=== PATIENT | female | born 1950 | race Caucasian/White ===

== ENCOUNTER 2018-08-24 07:02 | Inpatient (IN) | payer MEDICARE ==
--- NOTE | 2018-08-21 11:46 | Diagnostic Imaging Report ---
EXAMINATION: CHEST 2 VIEWS INDICATION: Pre-op. COMPARISON: None FINDINGS: TUBES and LINES: None. LUNGS: Lungs are well inflated. There is no evidence of pneumonia or pulmonary edema. Mild biapical pleural-parenchymal opacity, suggestive of prior granulomatous disease PLEURA: No pleural effusion or pneumothorax. HEART AND MEDIASTINUM: The cardiomediastinal silhouette is unremarkable. BONES AND SOFT TISSUES: No acute osseous abnormality. UPPER ABDOMEN: No free air under the diaphragm. There are cholecystectomy clips. IMPRESSION: No acute radiographic abnormality. Signed by: Dr. Teri Sommers MD on 08/21/2018 11:43 AM
[~2018-08-24] VITALS: Ht 162.6 cm; Wt 62.6 kg
[~2018-08-24 07:02] MED LIST: ALLEGRA-D 24 H1 EACH PO; BACITRACIN 50,000 UNIT VIAL ONE; COLESTIPOL HCL1 GM PO; ESTRADIOL0.5 MG PO; EYE DROP TEARS15 ML; LEVOTHYROXINE75 MCG PO; LOVASTATIN20 MG PO; PROPRANOLOL HCL10 MG PO; ROPIVACAINE 246.25 MG, EPINEPHRINE HCL 1:1000 1ML 0.5 MG, CLONIDINE HCL 0.08 MG, KETORO... INJ ONE; SODIUM CHLORIDE 0.9% 500ML 500 ML ONE; TRANEXAMIC ACID 1,000 MG/10 ML ML ONE; VANCOMYCIN HCL 1,000 MG ONE
--- OUTSIDE RECORDS SUMMARY | 2018-08-24 07:14 | XMS REPORT ---
Author Author [facility] Address Unknown Phone Unavailable Care Team Providers Care Photograph Retoucher Name Role Phone KAYLA DEAN Unavailable Unavailable Problems This patient has no known problems. Allergies, Adverse Reactions, Alerts This patient has no known allergies or adverse reactions. Medications This patient has no known medications. Results Test Description Test Time Test Comments Text Results Atomic Results Result Comments CHEST 2 VIEWS 2018-08-21 11:40:00 [place] [address] Patient Name: SENG ZULETA MR #: [id number] : 1950 Age/Sex: 67/F Req #: [id number] [facility] Physician: Ordered by: KAYLA DEAN MD Report #: [id number] Location: OR Room/Bed: Procedure: [id number] DX/CHEST 2 VIEWS Exam Date: 08/21/18 Exam Time: 1123 REPORT STATUS: Signed EXAMINATION: CHEST 2 VIEWS INDICATION: Pre-op. COMPARISON: None FINDINGS: TUBES and LINES: None. LUNGS: Lungs are well inflated. There is no evidence of pneumonia or pulmonary edema. Mild biapical pleural-parenchymal opacity, suggestive of prior granulomatous disease PLEURA: No pleural effusion or pneumothorax. HEART AND MEDIASTINUM: The cardiomediastinal silhouette is unremarkable. BONES AND SOFT TISSUES: No acute osseous abnormality. UPPER ABDOMEN: No free air under the diaphragm. There are cholecystectomy clips. IMPRESSION: No acute radiographic abnormality. Signed by: Dr. Rey Dennis MD on 08/21/2018 11:43 AM Dictated By: REY DENNIS MD [id number] Transcribed By: BAR on 08/21/18 1143 COPY TO: KAYLA DEAN MD
[2018-08-24] MEDS ORDERED: CELECOXIB 200 MG CAP ONE (07:44)
[2018-08-24] MEDS ORDERED: DEXAMETHASONE SOD PHOS 10 MG/1 ML VIAL ONE (07:44)
[2018-08-24] MEDS ORDERED: VANCOMYCIN 1GM/NS 250 ML 250 ML ONE (07:45)
[2018-08-24] MEDS ORDERED: GABAPENTIN 300 MG CAP ONE (07:45)
[2018-08-24] MEDS ORDERED: BUPIVACAINE 7.5MG/ML /DEXTROSE 82.5MG/ML 2 ML AMP INJ ONE (08:09)
[2018-08-24] MEDS: SODIUM CHLORIDE 0.9% 1000ML 1,000 ML IV SCH ×2 (10:37→21:41)
[2018-08-24] MEDS ORDERED: DOCUSATE SODIUM 100 MG CAP PO PRN (10:45)
[2018-08-24] MEDS ORDERED: PROMETHAZINE HCL (IM) 25 MG/ML VIAL IM PRN (10:45)
[2018-08-24] MEDS ORDERED: ONDANSETRON HCL INJ 2MG/ML 2ML 2 MG/ML VIAL IV PRN (10:45)
[2018-08-24] MEDS ORDERED: DIPHENHYDRAMINE HCL INJ 50 MG/ML VIAL IM/IV PRN (10:45)
[2018-08-24] MEDS ORDERED: KETOROLAC TROMETHAMINE 30 MG/ML VIAL IV PRN (10:45)
[2018-08-24] MEDS ORDERED: ACETAMINOPHEN 650 MG SUPP PR PRN (10:45)
[2018-08-24] MEDS ORDERED: HYDROCODONE/APAP 5MG-325MG TAB PO PRN (10:45)
--- NOTE | 2018-08-24 11:20 | NUR ---
ARRIVED VIA STRETCHER TO ROOM, WITH ASSIST PT TRANSFERRED TO BED AA&OX3, RA, R HAND IV INTACT, FLUSHES WELL, LEFT HIP DRESSING CDI, DENIES ANY PAIN AT THIS TIME, DTV, AYESHA HOSE IN PLACE TO RLE, FOOT PUMPS IN PLACE AND CONNECTED TO PUMP, ORIENTED TO ROOM AND CALL LIGHT SYSTEM, CALL LIGHT WITHIN REACH
[2018-08-24 11:43] VITALS: BP 106/60
[2018-08-24 11:48] VITALS: BP 106/60
[2018-08-24] MEDS ORDERED: PROPRANOLOL HCL40 MG PO (11:58)
[2018-08-24] MEDS: ACETAMINOPHEN 1000 MG/100 ML IV SCH ×2 (12:00→18:00)
--- NOTE | 2018-08-24 12:20 | Diagnostic Imaging Report ---
Exam: AP pelvis History: Postoperative evaluation Comparison: None. Findings: No fracture or malalignment. Left total hip arthroplasty. Expected postsurgical change. No complication. No abnormal soft tissue calcification or soft tissue defect. Impression: Left total hip arthroplasty without complication Signed by: Dr. Fabricio Arriaza M.D. on 08/24/2018 12:17 PM
--- NOTE | 2018-08-24 12:31 | Operative Report ---
DATE OF PROCEDURE: 08/24/2018 SURGEON: Tyree Jimenez MD CONSULTING DATABASE ADMINISTRATOR: Bubba Bell PA-C. PREOPERATIVE DIAGNOSIS: Osteoarthritis of left hip. POSTOPERATIVE DIAGNOSIS: Osteoarthritis of left hip. PROCEDURE: Left total hip arthroplasty. INDICATIONS: The patient is a 67-year-old lady, who has advanced osteoarthritis of her left hip. She has failed conservative management and would like to proceed with a left total hip replacement. The risks and benefits of the surgery have been discussed. The recovery has been explained. All of her questions have been answered. She states she understands and wishes to proceed. PROCEDURE IN DETAIL: The patient was brought to the operating room and placed under spinal anesthetic. She was given some IV sedation and positioned in the right lateral decubitus position. Her left hip was prepped and draped in a sterile manner. A preoperative time-out was performed. A posterior approach with a limited incision was made to the left hip. Hemostasis was obtained with electrocautery. A deep Charnley retractor was placed. The posterior capsule was carefully exposed. Additional hemostasis was further obtained with electrocautery. The posterior capsule and a portion of the short external rotators were released. The hip was dislocated. Marked synovitis of the joint and complete erosion of the articular cartilage of the femoral head was noted. An oscillating saw was used to resect the femoral head. Acetabular retractors were placed. The remnants of the labrum were highly fragmented and were excised. The socket was then reamed to 51 mm. This accomplished hemispherical bleeding cancellous bone. A single small subchondral cyst was debrided. A Steven [employer] OsseoTi socket with a 52 mm outer diameter was impacted. Fixation was augmented with a single 20 mm cancellous screw placed into the ilium. A highly cross-linked polyethylene liner with a 36 mm inner diameter was then seated into place. Care was taken to make sure that there was no evidence of soft tissue interposition. The hip had been thoroughly irrigated on several occasions during this portion of the case with a shower tip pulsatile lavage. Additional spray bottle of polymyxin and vancomycin spray was used. A portion of a 100 mL premixed pericapsular MATTHEW injection was placed around the socket. The socket was packed with a moistly soaked lap sponge and attention was directed towards the proximal femur. A box cutting osteotome and taper pin reamer were used to establish entry to the femoral canal. The Taperloc broaches were then impacted. A #9 stem had good canal fill and rotational stability for a trial reduction. A standard 36 mm head restored appropriate length and provided good stability through a full arc of motion. The trial implants were removed. The hip was further irrigated with the pulsatile lavage and the polymyxin/vancomycin spray. The remainder of the injection was placed into the subcutaneous tissue. The implants were seated. A standard 36 mm head was seated onto a clean and dry stem. A final reduction was performed. 500 mg of vancomycin powder was sprinkled into the joint. The posterior capsule was repaired with #2 Ethibond. The tensor fascia and gluteal fascia were closed with #2 Ethibond. The skin was closed with subcuticular Vicryl and darell. A sterile Aquacel bandage was applied. She was returned to the supine position and transported to the recovery room in stable condition. Blood loss was approximately 50 mL. All needle and sponge counts were correct. Tyree Jimenez MD DR/VIVI /[id number]
[2018-08-24 12:32] VITALS: BP 106/60
--- NOTE | 2018-08-24 13:02 | NUR ---
VISITING WITH FAMILY AT BEDSIDE, DENIES PAIN AT THIS TIME, CALL LIGHT WITHIN REACH
--- NOTE | 2018-08-24 15:39 | NUR ---
TALKING ON PHONE, DENIES PAIN AT THIS TIME, CALL LIGHT WITHIN REACH, PER PHYSICAL THERAPY PT SHOULD ONLY USE BEDPAN TODAY DUE TO "BEING UNABLE TO FEEL FEET AT THIS TIME"
[2018-08-24 16:00] VITALS: BP 110/61
[2018-08-24] MEDS ORDERED: LIDOCAINE HCL 2% LOCAL INJ 5 ML SDV VIAL INJ ONE (16:58)
[2018-08-24] MEDS ORDERED: PROPOFOL IV EMULSION 10 MG/ML 20 ML VIAL ONE (16:58)
[2018-08-24] MEDS ORDERED: CELECOXIB 100 MG CAP PO SCH (17:00)
[2018-08-24] MEDS ORDERED: FENTANYL CITRATE/PF 100MCG/2 ML INJ ONE (17:06)
[2018-08-24] MEDS ORDERED: MIDAZOLAM HCL 2 MG/2 ML VIAL ONE (17:06)
[2018-08-24] MEDS: ASPIRIN 325 MG TAB PO SCH (18:00)
[2018-08-24] MEDS: CELECOXIB 200 MG CAP PO SCH (18:00)
--- NOTE | 2018-08-24 18:45 | NUR ---
PT UNABLE TO VOID , BLADDER SCAN COMPLETED AT 423ML, STRAIGHT CATH COMPLETED, 1005ML REMOVED IN INTERVALS, PT TOLERATED WELL, CALL LIGHT WITHIN REACH
--- NOTE | 2018-08-24 19:23 | NUR ---
SPOKE WITH MD JIANG, AWARE OF CONSULT FOR MD EUBANKS, SPOKE WITH MD DEAN, MADE AWARE OF MEDICAL MANAGEMENT DR WAS SWITCHED DUE TO INSURANCE
--- NOTE | 2018-08-24 19:25 | NUR ---
Bedside report/walking rounds complete. Pt resting in bed and in no apparent distress. All safety measures ensured and pt call brown near.
--- NOTE | 2018-08-24 19:54 | NUR ---
Spoke with Dr. Farias to get pt home meds restarted. gave ok to restart home meds.
[2018-08-24 20:00] VITALS: BP 105/58
[2018-08-24] MEDS: PROPRANOLOL HCL 40 MG TAB PO SCH (20:00)
[2018-08-24] MEDS ORDERED: ATORVASTATIN 20 MG TAB PO SCH (21:00)
[2018-08-24] MEDS ORDERED: ZOLPIDEM TARTRATE 5 MG TAB PO PRN (21:00)
[2018-08-24] MEDS: VANCOMYCIN 1GM/NS 250 ML 250 ML IV SCH (21:04)
--- NOTE | 2018-08-24 21:23 | NUR ---
pt takes Inderal for tremors but states they are okay for now and doesn't need med right now and tremors have been better since being admitted. Pt BP 105/58 and p. 73.
[2018-08-24] MEDS: HYDROCODONE/APAP 7.5MG-325MG 1 EA TAB PO PRN (21:41)
[2018-08-25] VITALS: BP 87/57
[2018-08-25] MEDS: ACETAMINOPHEN 1000 MG/100 ML IV SCH ×2 (00:54→06:40)
[2018-08-25 04:00] VITALS: BP 104/61
[2018-08-25] MEDS: HYDROCODONE/APAP 7.5MG-325MG 1 EA TAB PO PRN (05:20)
--- NOTE | 2018-08-25 05:21 | NUR ---
Pt states she takes her Colestid 1gm rx in the am before eating and taking it at 0900 would be too late. Pt requested to take it now. Rx administered to pt.
[2018-08-25 05:34] LABS: HEMATOCRIT 30.3 % (34.2-44.1); HEMOGLOBIN 9.6 g/dL (12.0-16.0)
[2018-08-25] MEDS ORDERED: LEVOTHYROXINE SODIUM 75 MCG TAB PO SCH (06:00)
[2018-08-25] MEDS ORDERED: LEVOTHYROXINE SODIUM 88 MCG TAB PO SCH (06:00)
--- NOTE | 2018-08-25 06:11 | NUR ---
Pt urinated in bedpan but only put out about 40cc. Pt states discomfort in abdomen. Will bladder scan pt.
[2018-08-25] MEDS: SODIUM CHLORIDE 0.9% 1000ML 1,000 ML IV SCH (06:37)
--- NOTE | 2018-08-25 06:40 | NUR ---
Pt bladder scan and result of 849 cc. Pt straight cath and 900 cc removed. Pt tolerated well and stated discomfort in abdomen resolved. Post cath residual scan 43 cc.
[2018-08-25] MEDS: PROPRANOLOL HCL 40 MG TAB PO SCH (08:00)
[2018-08-25] MEDS: VANCOMYCIN 1GM/NS 250 ML 250 ML IV SCH (08:00)
--- NOTE | 2018-08-25 08:30 | NUR ---
RCD PT AT BED PT IS ALERT AND ORIENTED PT RESTING ON BED NO SIGNS OF ANY DISTRESS NOTED IV PATENT BED LOW AND LOCKED CALL LIGHT IN REACH
[2018-08-25 09:00] VITALS: BP 148/76
[2018-08-25] MEDS ORDERED: LORATADINE/PSEUDOEPHEDRINE 24 HR SR TAB PO SCH (09:00)
[2018-08-25] MEDS: ASPIRIN 325 MG TAB PO SCH ×2 (09:00→17:00)
[2018-08-25] MEDS: CELECOXIB 200 MG CAP PO SCH ×2 (09:00→17:00)
[2018-08-25] MEDS ORDERED: COLESTIPOL HCL 1 G TAB PO SCH (09:00)
[2018-08-25] MEDS ORDERED: ESTRADIOL 1 MG TAB PO SCH (09:00)
[2018-08-25 09:12] VITALS: BP 99/60
[2018-08-25] MEDS ORDERED: ACETAMINOPHEN 1000 MG/100 ML IV PRN (10:45)
[2018-08-25 14:03] VITALS: BP 100/54
--- NOTE | 2018-08-25 15:00 | NUR ---
PT VOIDED [address] ARIAS HE SAID DO THE BLADDER SCAN
--- NOTE | 2018-08-25 16:00 | NUR ---
DR JIANG SAID HE IS COMING TO SEE THE PT AFTER 30 MTS
--- NOTE | 2018-08-25 16:00 | NUR ---
BLADDER SCAN DONE (0 ML ) NO URINE REMAINING WAITING TO DR JIANG TO NOTIFY THAT
--- NOTE | 2018-08-25 17:00 | NUR ---
PAGED DR JIANG TO NOTIFY THE BLADDER SCAN REPORT AND LEFT THE MESSAGE
[2018-08-25 17:08] VITALS: BP 109/60
--- NOTE | 2018-08-25 18:00 | NUR ---
PT VOIDED 650 ML URINE
--- NOTE | 2018-08-25 18:20 | NUR ---
DR JIANG CAME TO SEE THE PT HE SAID PT CAN GO HOME IF OK WITH DR FLAKITA RYAN AND TALKED DANIA CASTREJON GOT THE DISCHARGE ORDER
--- NOTE | 2018-08-25 18:53 | NUR ---
PT RESTING ON BED BED SIDE REPORT GIVEN TO ONCOMING NURSE
--- NOTE | 2018-08-25 19:12 | NUR ---
Beside report received and walking rounds complete. Pt to be discharged home and awaiting ride home. Pt sitting at bedside and in no apparent distress. Safety measures ensured, call brown near.
--- NOTE | 2018-08-25 19:40 | NUR ---
Pt discharged home. Escorted pt to pickup area in wheelchair and pt taken home by family member. Pt aware to contact Dr. Jimenez if any issues post discharge. Pt verbalized understanding.
--- NOTE | 2018-08-26 00:14 | Consultation ---
DATE OF CONSULTATION: 08/25/2018 Nephrology Consultation Note REASON FOR CONSULTATION: Medical management. HISTORY OF PRESENT ILLNESS: This is a 67-year-old female, who has a past medical history of hypothyroidism, chronic pain, hyperlipidemia, who had a left hip replacement performed by Orthopedics. The patient was admitted overnight for further management and care. Internal Medicine was consulted for medical management. The patient is currently doing well with no complaints. Denies any chest pain, palpitation, fever, chills or pain, nausea, or vomiting. She is tolerating diet well. All home medications are started. The patient has no other complaints. REVIEW OF SYSTEMS: Pertinent positives: Status post left hip replacement. Pertinent negatives: Denies any chest pain, palpitation, nausea, vomiting, diarrhea, dysuria, hematuria, frequency, urgency, lightheadedness, dizziness, abdominal pain, headaches, shortness of breath, cough, congestion, fever, or any other complaints. The rest of the 14-point review of systems have been reviewed with the patient and are negative. ALLERGIES: PENICILLIN. HOME MEDICATIONS: Estradiol 1 mg at bedtime, every day, levothyroxine 75 mcg daily, PAST MEDICAL HISTORY: Hypothyroidism, hyperlipidemia, chronic pain. PAST SURGICAL HISTORY: Recent left hip arthroplasty. FAMILY HISTORY: Hypertension and diabetes. SOCIAL HISTORY: No drugs. No alcohol. Does not smoke. Good social support. PHYSICAL EXAMINATION: VITAL SIGNS: Temperature is 96.9, pulse 64, respiratory rate is 16, blood pressure is 100/54, pulse ox is 100% on room air. GENERAL: Not in acute distress. Alert and oriented x3. Cooperative on examination. HEENT: Head is normocephalic and atraumatic. Eyes; pupils are equal, round, and reactive to light bilaterally. Extraocular muscles intact bilaterally. Throat, no evidence of erythema or exudates in the posterior pharynx. Has poor dentition. NECK: Supple. Good range of motion. PULMONARY: Clear to auscultation bilaterally. No wheezing, no rales, no rhonchi, no crackles appreciated. CARDIOVASCULAR: Positive S1 and S2. No murmurs, rubs, or gallops appreciated. ABDOMEN: Soft, nontender, nontender to palpation. Bowel sounds present. MUSCULOSKELETAL: Strength is 5/5 throughout. No evidence of any muscle deficits on examination. No weakness appreciated. NEUROLOGICAL: Cranial nerves II through XII are grossly intact. No evidence of any neurological deficits on exam. SKIN: Intact. Warm to touch. Good cap refill. PSYCHIATRIC: Normal affect and mood. EXTREMITIES: No edema. Good range of motion throughout. LABORATORY DATA: Lab findings show white count IMAGING STUDIES: Chest x-ray was negative. Pelvis x-ray, left total hip arthroplasty without complications. IMPRESSION: 1. Status post left hip arthroplasty. 2. Hyperlipidemia. 3. Hypothyroidism. 4. Chronic pain. PLAN: This is postop day #1. She is doing well from hip standpoint. Pain is well controlled and tolerable. She will work with PT and OT. Continue with pain control. Resume same home medications with no changes. Her labs seem to be stable as well post procedurally. Hemoglobin is 9.6. We will monitor very closely. May end up being discharged later today by Orthopedics though she may state overnight. Otherwise, she is doing much better. Continue with pain control and ambulation. MD BYRON Ghotra/VIVI /[id number]
== END 2018-08-25 19:41 | disposition home health service (06) | DRG 470 ==
LOC: OR 07:02 → PACU V 10:40 → MED/SURG 11:15
PROVIDERS: ADMIT Specialist; ATTEND Specialist
PROC: 0SRB04A Replacement of Left Hip Joint with Ceramic on Polyethylene Synthetic Substitute, Uncemented, Open Approach (ICD-10-PCS; principal; 2018-08-24 09:30)
DX: M16.12 Unilateral primary osteoarthritis, left hip (principal); E78.5 Hyperlipidemia, unspecified; E03.9 Hypothyroidism, unspecified; G89.29 Other chronic pain; M17.11 Unilateral primary osteoarthritis, right knee
CPT/HCPCS: 36415; 71046; 72170; 85014; 85018; 86850; 86900; 86920; C1713; J0171; J1100; J1885; J2001; J2250; J2795; J3370; J7030; J7040

== ENCOUNTER 2022-09-02 10:40 | Observation (INO) | payer MEDICARE ==
[~2022-09-02] VITALS: Ht 162.6 cm; Wt 70.8 kg
[~2022-09-02 10:40] MED LIST changes: +ACETAMINOPHEN 1000 MG/100 ML 100 ML IV ONE; +ATORVASTATIN CA20 MG PO; -BACITRACIN 50,000 UNIT VIAL ONE; +FENOFIBRATE145 M1 PEG; +MELOXICAM7.5 MG PO; +OMEPRAZOLE40 MG PO; +PROPRANOLOL HCL40 MG PO; -SODIUM CHLORIDE 0.9% 500ML 500 ML ONE; -TRANEXAMIC ACID 1,000 MG/10 ML ML ONE; -VANCOMYCIN HCL 1,000 MG ONE; +VESICARE5 MG PO; +VITAMIN D250 MC1 PO
[2022-09-02] MEDS ORDERED: CELECOXIB 200 MG CAP ONE (10:48)
[2022-09-02] MEDS ORDERED: DEXAMETHASONE SOD PHOS 10 MG/1 ML VIAL ONE ×2 (10:48→11:59)
[2022-09-02] MEDS ORDERED: CEFAZOLIN SODIUM 2 GM ONE (10:49)
[2022-09-02] MEDS ORDERED: LACTATED RINGER'S 1,000 ML ONE (10:49)
[2022-09-02] MEDS ORDERED: GABAPENTIN 300 MG CAP ONE (10:49)
[2022-09-02] MEDS ORDERED: ROPIVACAINE 0.5% 5 MG/ML 30 ML SDV ONE (11:59)
[2022-09-02] MEDS ORDERED: DEXAMETHASONE SOD PHOS INJ 4 MG/ML SDV ONE (12:24)
[2022-09-02] MEDS ORDERED: LIDOCAINE HCL 2% LOCAL INJ 5 ML SDV VIAL INJ ONE (12:24)
[2022-09-02] MEDS ORDERED: SEVOFLURANE INHAL SOLN 250 ML PEN BTL ONE (12:24)
[2022-09-02] MEDS ORDERED: ONDANSETRON HCL INJ 2MG/ML 2ML 2 MG/ML VIAL ONE (12:24)
[2022-09-02] MEDS ORDERED: ROCURONIUM BROMIDE 10 MG/ML 5ML VIAL IV ONE (12:24)
[2022-09-02] MEDS ORDERED: NEOSTIGMINE 1 MG/ML 10ML VIAL ONE (12:24)
[2022-09-02] MEDS ORDERED: GLYCOPYRROLATE INJ 0.2 MG/ML VIAL ONE (12:24)
[2022-09-02] MEDS ORDERED: POVIDONE IODINE 0.05% 0.05 % ML PO ONE (12:24)
[2022-09-02] MEDS ORDERED: PROPOFOL IV EMULSION 10 MG/ML 20 ML VIAL ONE (12:24)
[2022-09-02] MEDS ORDERED: TRANEXAMIC ACID 20 ML ONE (13:19)
[2022-09-02] MEDS ORDERED: Vancomycin IV 1,000 MG ONE (13:19)
[2022-09-02] MEDS ORDERED: SODIUM CHLORIDE 0.9% 500ML 500 ML ONE (13:19)
[2022-09-02] MEDS ORDERED: MIDAZOLAM HCL 2 MG/2 ML VIAL ONE (13:57)
[2022-09-02] MEDS ORDERED: FENTANYL CITRATE/PF 100MCG/2 ML INJ ONE (13:57)
[2022-09-02] MEDS ORDERED: ZOLPIDEM TARTRATE 5 MG TAB PO PRN (15:45)
[2022-09-02] MEDS ORDERED: HYDROCODONE/APAP 5MG-325MG TAB PO PRN (15:45)
[2022-09-02] MEDS ORDERED: DIPHENHYDRAMINE HCL INJ 50 MG/ML VIAL IV PRN (15:45)
[2022-09-02] MEDS ORDERED: ACETAMINOPHEN 650 MG SUPP PR PRN (15:45)
[2022-09-02] MEDS ORDERED: DOCUSATE SODIUM 100 MG CAP PO PRN (15:45)
[2022-09-02] MEDS ORDERED: ONDANSETRON HCL INJ 2MG/ML 2ML 2 MG/ML VIAL IV PRN (15:45)
[2022-09-02] MEDS ORDERED: HYDROCODONE/APAP 7.5MG-325MG 1 EA TAB PO PRN (15:45)
[2022-09-02 16:46] VITALS: BP 108/59; PULSE 75; RESP 18; TEMP 98; O2SAT 98
[2022-09-02 17:20] VITALS: BP 108/59; PULSE 79; RESP 17; TEMP 98; O2SAT 98
[2022-09-02] MEDS: ASPIRIN 325 MG TAB PO SCH (17:28)
[2022-09-02] MEDS: CELECOXIB 100 MG CAP PO SCH (17:28)
[2022-09-02] MEDS: SODIUM CHLORIDE 0.9% 1000ML 1,000 ML IV SCH (17:54)
[2022-09-02] MEDS ORDERED: ACETAMINOPHEN 1000 MG/100 ML IV PRN (18:00)
[2022-09-02 20:00] VITALS: BP 119/60; PULSE 66; RESP 17; TEMP 97.5; O2SAT 100
[2022-09-02 21:37] VITALS: BP 119/60; PULSE 66; RESP 17; TEMP 97.5; O2SAT 100
[2022-09-03 00:24] VITALS: BP 116/61; PULSE 70; RESP 17; TEMP 97.5; O2SAT 98
[2022-09-03] MEDS: SODIUM CHLORIDE 0.9% 1000ML 1,000 ML IV SCH (04:54)
[2022-09-03 05:09] VITALS: BP 116/76; PULSE 77; RESP 17; TEMP 97.8; O2SAT 100
[2022-09-03 05:13] LABS: HEMATOCRIT 30.4 % (34.2-44.1); HEMOGLOBIN 9.7 g/dL (12.0-16.0)
[2022-09-03 07:28] VITALS: BP 119/67; PULSE 68; RESP 18; TEMP 97.8; O2SAT 98
[2022-09-03] MEDS: CELECOXIB 100 MG CAP PO SCH (09:49)
[2022-09-03 09:50] VITALS: BP 119/67; PULSE 68; RESP 18; TEMP 97.8; O2SAT 98
[2022-09-03] MEDS: ASPIRIN 325 MG TAB PO SCH (09:50)
== END 2022-09-03 11:14 | disposition home or self-care (01) ==
LOC: OR 10:40 → PACU V 16:04 → MED/SURG2 16:51
PROVIDERS: ADMIT Specialist; ATTEND Specialist
DX: M16.11 Unilateral primary osteoarthritis, right hip (principal); E78.00 Pure hypercholesterolemia, unspecified; E07.9 Disorder of thyroid, unspecified; Z96.642 Presence of left artificial hip joint; Z01.812 Encounter for preprocedural laboratory examination; Z01.818 Encounter for other preprocedural examination; Z79.899 Other long term (current) drug therapy; Z88.5 Allergy status to narcotic agent; Z88.0 Allergy status to penicillin
CPT/HCPCS: 27130; 36415; 71046; 72170; 85014; 85018; 86850; 86900; 86920; 97110; 97116 ×2; 97162; 97530; C1713 ×2; C1776 ×3; G0378 ×2; J0131; J0171; J0690; J1100 ×2; J1885; J2001; J2250; J2405; J2704; J2710; J2795; J3010; J3370; J7030 ×2; J7040; J7121